=== PATIENT | male | born 1955 | race Caucasian/White ===

== ENCOUNTER 2018-06-02 13:38 | Emergency (ER) | payer MEDICARE, SELFPAY ==
[2018-06-02 13:39] VITALS: BP 158/103; PULSE 87; RESP 18; TEMP 37.2; O2SAT 98; BMI 18.6
--- NOTE | 2018-06-02 14:32 | RAD_ITS ---
STUDY: X-RAY - RIGHT HAND REASON FOR EXAM: Male, 63 years old. Pain and swelling TECHNIQUE: 3 view(s) of the hand. COMPARISON: None. FINDINGS: No demonstrated acute fracture. There is however diffuse soft tissue swelling involving the entire phalanges of the index finger. Findings suggest an inflammatory process such as cellulitis. Mild degenerative arthrosis noted in the visualized joint spaces, most pronounced at the first metacarpophalangeal joint, and the PIP and DIP joints. There is contour abnormality in the proximal fifth phalanx suggesting an old healed fracture. RAD/Hand Min 3 Views IMPRESSION: Diffuse soft tissue swelling involving the phalanges of the index finger but no demonstrated fracture. Degenerative arthrosis Old healed fracture in the proximal fifth phalanx Electronically Signed: Mikel Orta MD at 15:02 EDT , Service support ,
[2018-06-02] MEDS: Cefazolin 1 GM/50 ML BAG IV (14:56)
[2018-06-02 15:01] LABS: Absolute Lymphocyte Count 1.26 X10^3/ul (0.83-4.51); Absolute Neutrophil Count 9.1 X10^3/uL (2.0-7.7); Basophil# 0.02 X10^3/uL; Basophil% 0.2 % (0-1); Eosinophil# 0.07 X10^3/uL; Eosinophils% 0.6 % (0-5); Hematocrit 44.3 % (40-54); Hemoglobin 14.5 g/dl (13.0-16.5); Lymphocyte # 1.26 X10^3/ul (4.0); Lymphocyte % 10.9 % (19-41); Mean Corp Hgb Conc 32.7 g/gl (32-36); Mean Corpuscular Hgb 30.1 pg (27.0-32.0); Mean Corpuscular Volume 91.9 fL (80-94); Mean Platelet Vol. 9.5 fl (6.2-12.0); Monocyte# 1.08 X10^3/uL; Monocyte% 9.3 % (0-10); Neutrophil # 9.11 X10^3/uL (2.7-7.7); Neutrophil % 78.8 % (47-70); POSITIVE COUNT NO; POSITIVE DIFFERENTIAL NO; POSITIVE MORPHOLOGY NO; Platelet Count 218 K/mm3 (150-450); RBC Distribution Width CV 13.6 % (11.6-14.6); RBC Distribution Width SD 45.7 fl (35.1-43.9); Red Blood Count 4.82 M/mm3 (4.6-6.2); White Blood Count 11.6 K/mm3 (4.4-11.0)
[2018-06-02 15:08] LABS: Anion Gap 5 (5-15); BUN 10 mg/dL (7-18); BUN/Creat Ratio 9.3 RATIO (10-20); Calcium,Total 9.2 mg/dL (8.5-10.1); Chloride 106 mmol/L (98-107); Creatinine, Serum 1.07 mg/dL (0.70-1.30); EST Glomerular Filtration Rate 74 mL/min (>60); Est Glom Filt Rate - Afr Amer 89 mL/min (>60); Estimated Creatinine Clearance 57.41 ml/min; Glucose 93 mg/dL (74-106); Potassium 3.9 mmol/L (3.5-5.1); Sodium Level 141 mmol/L (136-145)
--- NOTE | 2018-06-02 15:11 | ED.VISSUMM ---
- ER Visit Summary Date of Service: 06/02/18 Chief Complaint: Redness and swelling of right index finger History of Present Illness: The patient is a 63 M who presents with redness and swelling of his right index finger. He initially injured it by closing it in a car door on May 16. About 3 days ago he noticed redness and swelling which has been increasing since that time. He states he generally did not feel well last night had some generalized malaise but denies fevers nausea vomiting. He has no known medical history, is not a diabetic. He is uncertain of his last tetanus immunization. Pain is worse when he tries to straighten the finger. Physical Examination: Blood pressure 158/103 vitals otherwise normal Moist mucous membranes Heart regular rate and rhythm Lungs are clear Abdomen soft Patient has 4 out of 4 kanavels signs is fusiform swelling of the right index finger and the finger is held in flexion he has tenderness along the flexor tendons and he has pain with passive extension he does have some erythema extending onto the hand across the second MCP joint Test Results: X-ray on my review shows soft tissue swelling but no bony erosion or acute bony abnormality. CBC shows white blood cell count of 11.6. Emergency Department Course and Treatment: Dr. Mccollum, our plastic surgeon is unavailable. I did speak to orthopedics on-call, Dr. Kaplan who advised transfer for hand surgeon. Since tetanus immunization was updated. Patient was given IV Ancef. Patient was ultimately discussed with Dr. Brown at [facility] who accepted the patient for transfer for further management. Treatment Plan: [] Disposition: Transfer [facility] Impression: Flexor tenosynovitis This note was generated with [employer] dictation software. It may contain incorrect words, spelling, and punctuation that were not noted in review of the chart prior to signing ED Disposition - Plan for ED Patient: Disposition: [facility] Chief Complaint: Cellulitis Referrals: Francis Buenrostro MD [Primary Care Provider] -
--- NOTE | 2018-06-02 15:15 | ED.DCSUM_ITS ---
- ER Visit Summary Date of Service: 06/02/18 Chief Complaint: Redness and swelling of right index finger History of Present Illness: The patient is a 63 M who presents with redness and swelling of his right index finger. He initially injured it by closing it in a car door on May 16. About 3 days ago he noticed redness and swelling which has been increasing since that time. He states he generally did not feel well last night had some generalized malaise but denies fevers nausea vomiting. He has no known medical history, is not a diabetic. He is uncertain of his last tetanus immunization. Pain is worse when he tries to straighten the finger. Physical Examination: Blood pressure 158/103 vitals otherwise normal Moist mucous membranes Heart regular rate and rhythm Lungs are clear Abdomen soft Patient has 4 out of 4 kanavels signs is fusiform swelling of the right index finger and the finger is held in flexion he has tenderness along the flexor tendons and he has pain with passive extension he does have some erythema extending onto the hand across the second MCP joint Test Results: X-ray on my review shows soft tissue swelling but no bony erosion or acute bony abnormality. CBC shows white blood cell count of 11.6. Emergency Department Course and Treatment: Dr. Mccollum, our plastic surgeon is unavailable. I did speak to orthopedics on-call, Dr. Kaplan who advised transfer for hand surgeon. Since tetanus immunization was updated. Patient was given IV Ancef. Patient was ultimately discussed with Dr. Brown at [facility] who accepted the patient for transfer for further management. Treatment Plan: [] Disposition: Transfer [facility] Impression: Flexor tenosynovitis This note was generated with [employer] dictation software. It may contain incorrect words, spelling, and punctuation that were not noted in review of the chart prior to signing ED Disposition - Plan for ED Patient: Disposition: [facility] Chief Complaint: Cellulitis Referrals: Francis Buenrostro MD [Primary Care Provider] -
--- NOTE | 2018-06-02 15:27 | NURSING ---
CALLED [facility] FOR TRANSFER.
--- NOTE | 2018-06-02 15:56 | NURSING ---
CALLING [facility]
--- NOTE | 2018-06-02 16:05 | NURSING ---
GOING TO [facility] VIA [facility]IVATE CARE. THROUGH ER.
[2018-06-02] MEDS: Diphth,Pertuss(Acell),Tet Vac 0.5 ML Vial IM (16:35)
[2018-06-02 16:55] VITALS: BP 158/100; PULSE 83; RESP 16; TEMP 36.8; O2SAT 96
--- NOTE | 2018-06-02 17:15 | ED.RN ---
PT D/C WITH EX WHO WILL BE DRIVING HIM TO [facility]. CHART GIVEN TO PT.
== END 2018-06-02 17:15 | disposition short-term general hospital (02) ==
LOC: ED 15:04
PROVIDERS: Emergency Provider Emergency Medicine; PCP Internal Medicine
DX: M65.88 Other synovitis and tenosynovitis, other site (principal); Z72.0 Tobacco use
CPT/HCPCS: 73130; 80048; 85025; 90715; 96365; 99284; A4216

== ENCOUNTER 2018-08-05 03:09 | Inpatient (IN) | payer MEDICARE, SELFPAY ==
[2018-08-05] VITALS (10 sets, daily range): BP systolic 126–160; BP diastolic 87–101; PULSE 82–99; RESP 14–20; TEMP 36.9–37.2; O2SAT 92–99; BMI 19.4; BMI 18.1
--- NOTE | 2018-08-05 04:00 | RAD_ITS ---
STUDY: X-RAY - RIGHT ELBOW REASON FOR EXAM: Male, 63 years old. Right sided elbow swelling and redness. TECHNIQUE: 3 view(s) of the elbow. COMPARISON: None. FINDINGS: The distal humerus and proximal ulna have a normal appearance. There is a lucency in the radial head that may be the result of previous fracture. A small bone fragment is visible anterior to the humeral ulnar articulation possibly related to previous trauma. This could be an intra-articular loose body. There is mild degenerative arthrosis of the radiocapitellar and ulnotrochlear articulations. There is diffuse soft tissue swelling of the elbow. There is no demonstrated fracture. RAD/Elbow min 3 Views IMPRESSION: Severe diffuse soft tissue swelling apparently related to infection. Electronically Signed: Kira Fan MD at 4:26 EDT , Service support ,
[2018-08-05 04:39] LABS: Absolute Neutrophil Count 8.6 X10^3/uL (2.0-7.7); Basophil# 0.03 X10^3/uL; Basophil% 0.3 % (0-1); Eosinophil# 0.11 X10^3/uL; Hematocrit 39.7 % (40-54); Hemoglobin 13.1 g/dl (13.0-16.5); Lymphocyte % 11.6 % (19-41); Mean Corpuscular Volume 93.9 fL (80-94); Mean Platelet Vol. 9.8 fl (6.2-12.0); Monocyte# 1.07 X10^3/uL; Monocyte% 9.6 % (0-10); Neutrophil # 8.63 X10^3/uL (2.7-7.7); Platelet Count 226 K/mm3 (150-450); RBC Distribution Width CV 13.5 % (11.6-14.6); RBC Distribution Width SD 44.8 fl (35.1-43.9); Red Blood Count 4.23 M/mm3 (4.6-6.2); White Blood Count 11.2 K/mm3 (4.4-11.0)
[2018-08-05 04:42] LABS: Anion Gap 9 (5-15); BUN 15 mg/dL (7-18); BUN/Creat Ratio 14.4 RATIO (10-20); Calcium,Total 8.9 mg/dL (8.5-10.1); Chloride 106 mmol/L (98-107); Creatinine, Serum 1.04 mg/dL (0.70-1.30); EST Glomerular Filtration Rate 76 mL/min (>60); Est Glom Filt Rate - Afr Amer 92 mL/min (>60); Glucose 89 mg/dL (74-106); Potassium 3.6 mmol/L (3.5-5.1); Sodium Level 143 mmol/L (136-145)
[2018-08-05 04:43] LABS: POSITIVE COUNT NO; POSITIVE DIFFERENTIAL NO; POSITIVE MORPHOLOGY NO
[2018-08-05] MEDS: Cefazolin 1 GM/50 ML BAG IV ×3 (04:44→22:21)
--- NOTE | 2018-08-05 04:56 | ED.VISSUMM ---
- ER Visit Summary Date of Service: 08/05/18 Chief Complaint: Right forearm and elbow pain and swelling History of Present Illness: The patient is a 63 M who presents with right arm pain and swelling. He denies any medical history daily medications. Earlier this year I saw him in the emergency department for pain and swelling of his finger. He was diagnosed with flexor tenosynovitis and transferred to [facility] and ultimately had a finger amputation. He states he believes he was diagnosed with strep at that time. He was treated with Keflex as an outpatient. In the last 24-36 hours he developed redness pain and swelling beginning at his elbow and spreading along his forearm. He states he does often bumped his elbow but does not recall any other specific injury. He reports chills. No documented fevers. No nausea vomiting or diarrhea. He does complain of some generalized myalgias. Physical Examination: Afebrile hypertensive but vitals otherwise unremarkable Moist mucous membranes Heart regular rate and rhythm Lungs are clear Patient does have signs of olecranon bursitis he has an abrasion over the elbow with soft tissue swelling and erythema over the olecranon and signs of cellulitis along the forearm he does not have any crepitus he has tenderness over the back of the elbow he has good short arc range of motion of the elbow with no pain he has an easily palpable radial pulse brisk capillary refill and normal sensation light touch Test Results: Labs notable for white blood cell count 11.2 otherwise normal. Elbow x-ray shows severe diffuse soft tissue swelling no soft tissue gas. Emergency Department Course and Treatment: Patient was treated with IV Ancef. He was discussed with the hospitalist and will be admitted under the medical service with orthopedic consultation. Treatment Plan: [] Disposition: Admit Impression: Olecranon bursitis Right arm cellulitis This note was generated with [id number] dictation software. It may contain incorrect words, spelling, and punctuation that were not noted in review of the chart prior to signing ED Disposition - Plan for ED Patient: Chief Complaint: Cellulitis Referrals: Care Physician,No Primary [Primary Care Provider] -
--- NOTE | 2018-08-05 04:59 | ED.DCSUM_ITS ---
- ER Visit Summary Date of Service: 08/05/18 Chief Complaint: Right forearm and elbow pain and swelling History of Present Illness: The patient is a 63 M who presents with right arm pain and swelling. He denies any medical history daily medications. Earlier this year I saw him in the emergency department for pain and swelling of his finger. He was diagnosed with flexor tenosynovitis and transferred to [facility] and ultimately had a finger amputation. He states he believes he was diagnosed with strep at that time. He was treated with Keflex as an outpatient. In the last 24-36 hours he developed redness pain and swelling beginning at his elbow and spreading along his forearm. He states he does often bumped his elbow but does not recall any other specific injury. He reports chills. No documented fevers. No nausea vomiting or diarrhea. He does complain of some generalized myalgias. Physical Examination: Afebrile hypertensive but vitals otherwise unremarkable Moist mucous membranes Heart regular rate and rhythm Lungs are clear Patient does have signs of olecranon bursitis he has an abrasion over the elbow with soft tissue swelling and erythema over the olecranon and signs of cellulitis along the forearm he does not have any crepitus he has tenderness over the back of the elbow he has good short arc range of motion of the elbow with no pain he has an easily palpable radial pulse brisk capillary refill and normal sensation light touch Test Results: Labs notable for white blood cell count 11.2 otherwise normal. Elbow x-ray shows severe diffuse soft tissue swelling no soft tissue gas. Emergency Department Course and Treatment: Patient was treated with IV Ancef. He was discussed with the hospitalist and will be admitted under the medical service with orthopedic consultation. Treatment Plan: [] Disposition: Admit Impression: Olecranon bursitis Right arm cellulitis This note was generated with [employer] dictation software. It may contain incorrect words, spelling, and punctuation that were not noted in review of the chart prior to signing ED Disposition - Plan for ED Patient: Chief Complaint: Cellulitis Referrals: Care Physician,No Primary [Primary Care Provider] -
--- NOTE | 2018-08-05 05:09 | PCM.HP.STD ---
Problem List (1) Olecranon bursitis, right elbow Status: Acute (2) Tobacco use Status: Chronic History of Present Illness Date of Admission: 08/05/18 Chief Complaint: RUE elbow pain, redness, swelling. The patient is a 63 y/o M w/ PMHx: Tobacco use, recent evaluation for R 2nd digit tenosynovitis with eventual amputation who now presents to the [facility] on 08/05/18 with history of onset right elbow mild swelling and redness starting approximately 24 hours prior, progressively worsening with increased warmth, extension of the erythema as well as worsened swelling and discomfort with onset subjective fevers and chills. Given patient recent amputation secondary to infection he was very anxious and presented to the ED for evaluation. In the ED workup included T 98.8, heart rate 99, BP 160/101, respiratory rate 18, 99% on room air, CBC with WBC 11.2, hemoglobin 13.1, platelet 226 with left shift, unremarkable BMP, pain film with severe diffuse soft tissue swelling. The ED patient administered IV Ancef therapy. Past Medical History Past Medical History (Chronic Problems): Chronic Problems Tobacco use (Chronic) Allergies Penicillins Allergy (Verified 08/05/18 03:14) Unknown peanut Adverse Reaction (Verified 08/05/18 03:14) Diarrhea Home Medications: Ambulatory Orders Medication Instructions Recorded NK 06/02/18 Surgical History: - - Bilateral inguinal hernia repair, recent right second finger amputation. Psychiatric History: No pertinent psych hx Lives: Alone Smoking Status: Current every day smoker - 1 cigarette tobacco pack per day. Tobacco Use: Cigarettes Alcohol: Occasional Drugs: None - *Family History Maternal History Items: - - Patient notes his mother of an MVA in her 80s with no market medical history otherwise. Paternal History Items: Dementia - Patient notes father with a history of Alzheimer's dementia. Sibling History Items: Dementia - Patient notes sister with a history of Alzheimer's dementia. Review of Systems Constitutional: Reports: Chills, Fever, Malaise, Weakness, Fatigue. Denies: Weight Change HEENT: Denies: Head Aches, Sinus Congestion, Sinus Drainage Cardiovascular: Denies: Chest Pain, Palpitations Respiratory: Denies: Cough, Shortness of breath at rest, Sputum production Gastrointestinal: Denies: Abdominal Pain, Nausea, Vomiting Genitourinary: Denies: Dysuria Musculoskeletal: Reports: Arm Pain, Back Pain. Denies: Joint Pain, Joint Tenderness Skin: Reports: Skin Changes. Denies: Rash, Wounds Neurological: Denies: Numbness, Tingling, Focal weakness Psychiatric: Denies: Anxiety, Depression, Homicidal Ideations, Suicidal Ideations Hematologic/ Lymphatic: Denies: Easy Bruising, Easy Bleeding VTE Information - Inpt Only VTE Present on Admission: No VTE Mechan Device Prophylaxis: SCD's VTE Pharm Prophylaxis ordered?: Yes Patient Problems: Active and Suspected Problems Olecranon bursitis, right elbow (Acute) Subjective: Patient seated upright in the ED bed, no acute distress, notes ongoing discomfort to the right upper extremity. Objective: Physical Examination: General: awake, alert, oriented x 3 and cooperative, seated upright in the ED bed in no apparent distress. Skin: normal color, turgor, no icterus, cyanosis except right upper extremity with right elbow and mid forearm to mid bicep region erythema, tenderness to palpation, increased warmth, edema and mild fluctuant olecranon bursa. HEENT: AT/NC, EOMI, PERRLA, MMM, no carotid bruits or JVD noted. Lungs: CTA bilaterally, moderate effort, mild decrease BL bases, no rales, ronchi or wheezing. Heart: Regular rate and rhythm; no gallop, rub audible. Abdomen: soft, NTTP, ND, normal BS, no HSM. Extremities: no cyanosis, clubbing, see skin. Neurological: patient awake, alert, oriented x 3; cognitive function intact; pupils equally reactive to light and accomodation; cranial nerves II-XII grossly normal, moving all 4 extremities although right upper extremity is mildly limited secondary to acute presentation, no focal deficits, strength moderately globally decreased secondary to acute presentation. Psychiatric: affect appears normal, no acute evidence of depressive or anxiety feelings. - Physical Exam Vital Signs Temp Pulse Resp BP Pulse Ox 98.8 F 99 18 160/101 H 99 08/05/18 03:10 08/05/18 03:10 08/05/18 03:10 08/05/18 03:10 08/05/18 03:10 Oxygen Delivery Method Room Air Weight: 135 lb 5.821 oz Body Mass Index (BMI) 19.4 Laboratory Tests Past 24 Hrs 08/05/18 08/05/18 03:15 03:15 WBC 11.2 H RBC 4.23 L Hgb 13.1 Hct 39.7 L MCV 93.9 MCH 31.0 MCHC 33.0 RDW 13.5 RDW Differential 44.8 H Plt Count 226 MPV 9.8 Immature Gran % (Auto) 0.500 Neut % (Auto) 77.0 H Lymph % (Auto) 11.6 L [place] % (Auto) 9.6 Eos % (Auto) 1.0 Baso % (Auto) 0.3 Absolute Neuts (auto) 8.6 H Absolute Lymphs (auto) 1.30 Total Counted Not Reportable Sodium 143 Potassium 3.6 Chloride 106 Carbon Dioxide 28.0 Anion Gap 9 BUN 15 Creatinine 1.04 Estim Creat Clear Calc 61.50 Est GFR (MDRD) Af Amer 92 Est GFR (MDRD) Non-Af 76 BUN/Creatinine Ratio 14.4 Glucose 89 Calcium 8.9 Assessment/Plan All Active Problems Olecranon bursitis, right elbow (Acute) The patient is a 63 y/o M w/ PMHx: Tobacco use, recent evaluation for R 2nd digit tenosynovitis with eventual amputation who now presents to the [facility] on 08/05/18 with history of onset right elbow mild swelling and redness starting approximately 24 hours prior, progressively worsening with increased warmth, extension of the erythema as well as worsened swelling and discomfort with onset subjective fevers and chills. (1) RUE Olecranon bursitis and Cellulitis: Admission CBC w/ WBC 11.2 with L shift. Will admit to [facility], maintain on IV ancef and defer vanc addition as low risk for MRSA, plan repeat CBC in AM, continue affected extremity elevation above heart when seated and in bed, monitor erythema outline with VS checks. Will consult Orthopedic surgery, Dr. Bob Fan. (2) Elevated BP without diagnosis HTN: ED BP 160/101, no prior history, possibly secondary to his acute presentation with pain, continue to monitor and add treatment if appropriate. (3) Tobacco Abuse: Encouraged cessation, inpatient consultation per RT, NR if desired. (4) DVT Prophylaxis: SCDs, lovenox. Code Visit Inpatient E&M: [id number] Init Hosp L3
[2018-08-05] MEDS: 0.9% Normal Saline 1,000 ML 125 ML IV (06:01)
--- NOTE | 2018-08-05 06:11 | NUR.TO.PHY ---
Pt elated, restless, impulsive, talkative. See shift neuro assessment Admits to marijuana, cocaine and meth use prior to coming to hospital.
--- NOTE | 2018-08-05 08:02 | PCM.CONS.GEN ---
Reason for Consult Date of Consultation: 08/05/18 History of Present Illness: The patient is a 63 year old male with a history of previous infection involving his right index finger that required an amputation about 2 months ago in [place]. Over the past several days he developed right elbow swelling and pain. He denies any significant injury or trauma. He denies using IV drugs. Due to pain and swelling he came into the emergency room. Orthopedics was not notified. Patient was admitted to the hospitalist service. Orthopedics was ultimately consulted at 7:04 AM. Patient denies fevers or chills at home. He denies any other known infections. He does admit to tobacco use, alcohol use, marijuana use. Denies significant neck or shoulder pain. Denies wrist or hand pain numbness or tingling [] Past Medical History Past Medical History (Chronic Problems): Chronic Problems Tobacco use (Chronic) Allergies Penicillins Allergy (Verified 08/05/18 03:14) Unknown peanut Adverse Reaction (Verified 08/05/18 03:14) Diarrhea Home Medications: Ambulatory Orders Medication Instructions Recorded NK 06/02/18 Surgical History: - - Bilateral inguinal hernia repair, recent right second finger amputation. Psychiatric History: No pertinent psych hx Lives: Alone Smoking Status: Current every day smoker Tobacco Use: Cigarettes Alcohol: Occasional Drugs: None - *Family History Maternal History Items: - - Patient notes his mother of an MVA in her 80s with no market medical history otherwise. Paternal History Items: Dementia - Patient notes father with a history of Alzheimer's dementia. Sibling History Items: Dementia - Patient notes sister with a history of Alzheimer's dementia. Patient Problems: Active and Suspected Problems Olecranon bursitis, right elbow (Acute) Objective: Right elbow has diffuse swelling posteriorly. Minimal fluctuance noted at the olecranon bursa. Thickening of the tissue noted more medially than laterally. Full elbow motion. Normal elbow strength. No pain at the shoulder wrist or fingers. Amputation site at index finger noted. No signs of infection there. No pain or swelling about the hand. Elbow is ligamentously stable. No obvious elbow joint effusion noted. Pronation supination of the elbow X-rays reviewed of the right elbow showing slight soft tissue calcifications anteriorly. Mild diffuse soft tissue swelling. No obvious acute fractures or dislocations. Laboratory work reviewed. Note from hospitalist reviewed - Physical Exam Vital Signs Temp Pulse Resp BP Pulse Ox 99 F 88 20 H 147/87 H 98 08/05/18 05:46 08/05/18 05:46 08/05/18 05:46 08/05/18 05:46 08/05/18 05:46 Oxygen Delivery Method Room Air Weight: 57.3 kg Body Mass Index (BMI) 18.1 Laboratory Tests Past 24 Hrs 08/05/18 08/05/18 08/05/18 03:15 03:15 07:20 WBC 11.2 H RBC 4.23 L Hgb 13.1 Hct 39.7 L MCV 93.9 MCH 31.0 MCHC 33.0 RDW 13.5 RDW Differential 44.8 H Plt Count 226 MPV 9.8 Immature Gran % (Auto) 0.500 Neut % (Auto) 77.0 H Lymph % (Auto) 11.6 L [place] % (Auto) 9.6 Eos % (Auto) 1.0 Baso % (Auto) 0.3 Absolute Neuts (auto) 8.6 H Absolute Lymphs (auto) 1.30 Total Counted Not Reportable Sodium 143 Potassium 3.6 Chloride 106 Carbon Dioxide 28.0 Anion Gap 9 BUN 15 Creatinine 1.04 Estim Creat Clear Calc 61.50 Est GFR (MDRD) Af Amer 92 Est GFR (MDRD) Non-Af 76 BUN/Creatinine Ratio 14.4 Glucose 89 Calcium 8.9 Urine Opiates Screen Pending Urine Methadone Screen Pending Ur Barbiturates Screen Pending Ur Phencyclidine Scrn Pending Ur Amphetamines Screen Pending U Methamphetamin-MDMA Pending U Benzodiazepines Scrn Pending Urine Cocaine Screen Pending U Cannabinoids Screen Pending Ur Drug Screen Comment Assessment/Plan All Active Problems Olecranon bursitis, right elbow (Acute) Right elbow cellulitis, probable olecranon bursitis: Patient was explained his diagnosis and treatment options. He did give consent for aspiration of the elbow with an 18-gauge needle. He understood the risk involved possible pain bleeding damage to nerves arteries tendons possible need for further intervention such as surgery or repeat aspirations. I explained hopefully the aspirate will help know what bacteria may be causing his problem and also may help with getting infected fluid out of the bursa. Procedure: After obtaining appropriate consent patient's right elbow was prepped with Betadine. Followed by alcohol preps. 18-gauge needle was used to aspirate his elbow olecranon bursa from a direct posterior approach over the most fluctuant area. Just 1 or 2 cc of bloody type fluid was obtained from his bursa. This was placed on a culture swab and sent for stat Gram stain culture and sensitivity. 4 x 4 ABD and Олег wrap was applied. I recommended elevation of the arm to an IV pole with a stockinette. I am recommending nonoperative treatment at this point. Hopefully with IV antibiotics elevation and supportive care this will resolve. medical/social problems including drug use alcohol use tobacco use, evaluation and treatment per hospitalist service
[2018-08-05 08:10] LABS: Amphetamine Urine VISTA POSITIVE (<1000 ng/mL); Barbiturate Urine VISTA NEGATIVE (< 200 ng/mL); Benzodiazepine Urine VISTA NEGATIVE (< 200 ng/mL); Cocaine Urine VISTA NEGATIVE (< 300 ng/mL); Ecstacy Urine VISTA NEGATIVE (< 500 ng/mL); Methadone Urine VISTA NEGATIVE (< 300 ng/mL); PCP Urine VISTA NEGATIVE (< 25 ng/mL); THC Urine VISTA POSITIVE (< 50 ng/mL); Vista UDS pH Range 7
[2018-08-05] MEDS: Enoxaparin 40 MG/0.4 ML Syringe SC (09:33)
--- NOTE | 2018-08-05 11:00 | CASEMGMT ---
Addendum entered by Misti Shahid 08/05/18 12:19: Pt's preferred pharmacy is [facility]. Per pt he doesn't currently have a PCP. PCP list provided to pt. Original Note: Social Work Assessment Referral Date: 08/05/2018 Date of Assessment: 08/05/2018 Reason for consult: Initial Assessment, Drug use Informant: LUCY Personal Status: SW met with pt to complete initial assessment. SW introduced self and role at [facility]. Pt is alert and orientated x3. Pt states that he lives alone in a two story home with two steps to enter the home. Pt states that he currently works at [employer] third shift. Pt states that he was previously independent with ALDs. Pt denied having any close friends or family for support. Pt denied DME. Pt states that his plan is to return home at discharge. Pt denied additional needs or concerns at this time. Substance Abuse Hx: Pt states that he has a history of alcohol use, tobacco, and Marijuana use. Pt states that he will drink once a day or about every other day. Pt states that he used to drink more. Pt denied additional drug use. Pt denied wanting substance use resources. Mental Health Hx: Pt denied Plan: Pt to return home at discharge. PT denied additional needs or concerns at this time. SW informed pt that if he thinks of anything he may need to let staff know. Pt states understanding. Misti Shahid VOCATIONAL EVALUATOR, ENERGY AUDIT ADVISOR
--- NOTE | 2018-08-05 11:04 | PCM.HOSP.N ---
Hospitalist Note Patient was seen and examined briefly today, his right arm is wrapped and it is elevated, orthopedics saw the patient today and aspirated approximately 2 cc out of his right olecranon bursa, they did not perform a PCR however. I have changed the patient's Ancef to 1 g every 8 hours, patient's tox screen was positive for methamphetamines and cannabinoids. Patient will be reevaluated tomorrow by orthopedic surgery.
[2018-08-05] MEDS: HYDROcodone Bitartrate/Apap 5/325 Tablet PO (17:46)
--- NOTE | 2018-08-05 19:43 | NURSING ---
During evening rounds pt was found to not be in room or on floor. Went in 10 minutes later to see if pt had returned to find him sitting in the chair. When asked about his whereabouts pt stated that he'd gone outside with a friend. Expressed to pt that he is not allowed to leave the floor without proper permission. Pt stated that he 'would not leave the floor again'. Informed charge nurse Renée.
[2018-08-06 02:00] VITALS: BP 149/91; PULSE 86; RESP 14; TEMP 36.9; O2SAT 97
[2018-08-06] MEDS: Cefazolin 1 GM/50 ML BAG IV ×2 (06:02→13:52)
[2018-08-06 07:15] LABS: Absolute Lymphocyte Count 1.43 X10^3/ul (0.83-4.51); Absolute Neutrophil Count 9.3 X10^3/uL (2.0-7.7); Basophil# 0.02 X10^3/uL; Basophil% 0.2 % (0-1); Eosinophil# 0.11 X10^3/uL; Eosinophils% 0.9 % (0-5); Hematocrit 39.2 % (40-54); Hemoglobin 12.5 g/dl (13.0-16.5); Lymphocyte # 1.43 X10^3/ul (4.0); Lymphocyte % 11.8 % (19-41); Mean Corp Hgb Conc 31.9 g/gl (32-36); Mean Corpuscular Hgb 29.9 pg (27.0-32.0); Mean Corpuscular Volume 93.8 fL (80-94); Mean Platelet Vol. 9.7 fl (6.2-12.0); Monocyte% 9.9 % (0-10); Neutrophil # 9.28 X10^3/uL (2.7-7.7); Neutrophil % 76.9 % (47-70); Platelet Count 210 K/mm3 (150-450); RBC Distribution Width CV 13.7 % (11.6-14.6); RBC Distribution Width SD 46.5 fl (35.1-43.9); Red Blood Count 4.18 M/mm3 (4.6-6.2); White Blood Count 12.1 K/mm3 (4.4-11.0)
[2018-08-06 07:24] LABS: POSITIVE COUNT NO; POSITIVE DIFFERENTIAL NO; POSITIVE MORPHOLOGY NO
[2018-08-06 07:41] LABS: Anion Gap 6 (5-15); BUN 13 mg/dL (7-18); BUN/Creat Ratio 13.1 RATIO (10-20); Calcium,Total 8.5 mg/dL (8.5-10.1); Chloride 106 mmol/L (98-107); EST Glomerular Filtration Rate 80 mL/min (>60); Est Glom Filt Rate - Afr Amer 97 mL/min (>60); Estimated Creatinine Clearance 59.69 ml/min; Glucose 98 mg/dL (74-106); Potassium 4.3 mmol/L (3.5-5.1); Sodium Level 141 mmol/L (136-145)
[2018-08-06 09:19] VITALS: BP 148/90; PULSE 78; RESP 20; TEMP 36.3; O2SAT 96
[2018-08-06] MEDS: 0.9% NaCl Peripheral Flush Adult/Peds IV ×2 (13:52→22:08)
[2018-08-06 14:00] VITALS: BP 144/90; PULSE 88; RESP 18; TEMP 36.6; O2SAT 97
--- NOTE | 2018-08-06 14:07 | NURSING ---
pt offerred a nicotine patch which he declined, pt offerred pain meds which he declines at this time-pt is upset, waiting for dr garcia (who said he would be here within the hour)-pt informed
--- NOTE | 2018-08-06 15:42 | PCM.PN.ORT ---
Patient Problems: Active and Suspected Problems Olecranon bursitis, right elbow (Acute) Subjective: Patient states his right elbow is feeling slightly better now. He states that actually felt worse last evening. He has noted more swelling. He is hoping to be discharged soon. Objective: Patient has diffuse swelling and hyperemia about the right elbow olecranon bursa. Questionable mild fluctuance at the elbow bursa. Some swelling in the forearm. No severe tenderness at the forearm wrist or hand. Good active motion of the wrist and fingers. Normal sensation. Good motion of the shoulder. No pain at the upper arm or shoulder region. Fullness seems to be more dorsal ulnar than radial. Skin is intact. No expressible drainage. - Physical Exam Vital Signs Temp Pulse Resp BP Pulse Ox 97.3 F L 78 20 H 148/90 H 96 08/06/18 09:19 08/06/18 09:19 08/06/18 09:19 08/06/18 09:19 08/06/18 09:19 Oxygen Delivery Method Room Air Weight: 57.3 kg Body Mass Index (BMI) 18.1 Intake and Output for Last 24 Hours 08/04/18 08/05/18 08/06/18 23:59 23:59 23:59 Intake Total 1429 / 1429 Balance 1429 / 1429 Microbiology Past 72 Hours 08/05/18 07:30 Gram Stain - Final Wound - Elbow Wound Culture - Preliminary No growth-Final to follow Laboratory Tests Past 24 Hrs 08/06/18 08/06/18 06:33 06:33 WBC 12.1 H RBC 4.18 L Hgb 12.5 L Hct 39.2 L MCV 93.8 MCH 29.9 MCHC 31.9 L RDW 13.7 RDW Differential 46.5 H Plt Count 210 MPV 9.7 Immature Gran % (Auto) 0.300 Neut % (Auto) 76.9 H Lymph % (Auto) 11.8 L [place] % (Auto) 9.9 Eos % (Auto) 0.9 Baso % (Auto) 0.2 Absolute Neuts (auto) 9.3 H Absolute Lymphs (auto) 1.43 Total Counted Not Reportable Sodium 141 Potassium 4.3 Chloride 106 Carbon Dioxide 29.0 Anion Gap 6 BUN 13 Creatinine 1.00 Estim Creat Clear Calc 59.69 Est GFR (MDRD) Af Amer 97 Est GFR (MDRD) Non-Af 80 BUN/Creatinine Ratio 13.1 Glucose 98 Calcium 8.5 Medical Necessity - Tobacco Use Smoking Status: Current every day smoker Tobacco Use: Cigarettes Assessment/Plan All Active Problems Olecranon bursitis, right elbow (Acute) Right elbow cellulitis, probable olecranon bursitis: Patient was explained his diagnosis and treatment options. He did give consent for aspiration of the elbow with an 18-gauge needle. He understood the risk involved possible pain bleeding damage to nerves arteries tendons possible need for further intervention such as surgery or repeat aspirations. I explained hopefully the aspirate will help know what bacteria may be causing his problem and also may help with getting infected fluid out of the bursa. Procedure: After obtaining appropriate consent patient's right elbow was prepped with Betadine. Followed by alcohol preps. 18-gauge needle was used to aspirate his elbow olecranon bursa from a direct posterior approach over the most fluctuant area. Just 1 or 2 cc of bloody type fluid was obtained from his bursa. Then the area was milked and another drop or 2 of blood was obtained and placed on a culture swab. This was placed on a culture swab and sent for MRSA PCR, and stat Gram stain culture and sensitivity. 4 x 4 ABD and Олег wrap was applied. I recommended elevation of the arm to an IV pole with a stockinette. I am recommending nonoperative treatment at this point. Hopefully with IV antibiotics elevation and supportive care this will resolve. This was again discussed with Dr. Gill. He stated infectious disease coverage is not available on the weekend. He felt that if he does not improve with current antibiotic treatment or if PCR test is positive for staph, he would switch his antibiotic. medical/social problems including drug use alcohol use tobacco use, evaluation and treatment per hospitalist service
--- NOTE | 2018-08-06 16:57 | PCM.PROGNOTE ---
Patient Problems: Active and Suspected Problems Olecranon bursitis, right elbow (Acute) Subjective: Was seen and examined today, patient still has significant induration and redness of his right elbow area. The elbow area is also still painful. I talked with orthopedic surgery today, they aspirated approximately 2 cc of fluid from the right olecranon bursa and it was sent down for PCR test today-this is pending at the time of my dictation. - Physical Exam General: Alert, Oriented x3, Cooperative, No apparent distress, Well developed, Well nourished HEENT: Atraumatic, PERRLA, EOMI, Normocephalic Oral: Moist Mucosa Neck: Supple, Trachea Midline, Thyroid Normal Size and Texture Lungs: Clear to auscultation, Normal air movement, No rhonchi, No wheeze, No rales Cardiovascular: Regular rate, Regular Rhythm, Normal S1, Normal S2, No murmurs, No Ectopic Activity Abdomen: Bowel Sounds Present, Soft, Non Tender, Non-Distended Extremities: Capillary Refill Less than 3 Seconds, Edema - Right elbow area is edematous over the right olecranon bursa Skin: No rashes, No breakdown, Rash Present - Redness is present over the patient's right elbow area-olecranon bursa Musculoskeletal: Tenderness - Tenderness to palpation is noted over the patient's right olecranon bursa Neurological: Cranial nerves II-XII grossly intact, Neuro grossly intact, Muscle tone normal, Sensory exam intact to light touch and pain Psych/Mental Status: Normal Affect, Appropriate, Alert and oriented to time, place, person, mood and affect Vital Signs Temp Pulse Resp BP Pulse Ox 97.9 F 88 18 144/90 H 97 08/06/18 14:00 08/06/18 14:00 08/06/18 14:00 08/06/18 14:00 08/06/18 14:00 Oxygen Delivery Method Room Air Weight: 57.3 kg Body Mass Index (BMI) 18.1 Intake and Output for Last 24 Hours 08/04/18 08/05/18 08/06/18 23:59 23:59 23:59 Intake Total 1429 / 1429 Balance 1429 / 1429 Microbiology Past 72 Hours 08/05/18 07:30 Gram Stain - Final Wound - Elbow Wound Culture - Preliminary No growth-Final to follow Laboratory Tests Past 24 Hrs 08/06/18 08/06/18 08/06/18 06:33 06:33 15:35 WBC 12.1 H RBC 4.18 L Hgb 12.5 L Hct 39.2 L MCV 93.8 MCH 29.9 MCHC 31.9 L RDW 13.7 RDW Differential 46.5 H Plt Count 210 MPV 9.7 Immature Gran % (Auto) 0.300 Neut % (Auto) 76.9 H Lymph % (Auto) 11.8 L [place] % (Auto) 9.9 Eos % (Auto) 0.9 Baso % (Auto) 0.2 Absolute Neuts (auto) 9.3 H Absolute Lymphs (auto) 1.43 Total Counted Not Reportable Sodium 141 Potassium 4.3 Chloride 106 Carbon Dioxide 29.0 Anion Gap 6 BUN 13 Creatinine 1.00 Estim Creat Clear Calc 59.69 Est GFR (MDRD) Af Amer 97 Est GFR (MDRD) Non-Af 80 BUN/Creatinine Ratio 13.1 Glucose 98 Calcium 8.5 S.aureus Protein A PCR Pending MRSA (PCR) Pending Medical Necessity - Tobacco Use Smoking Status: Current every day smoker Tobacco Use: Cigarettes Assessment/Plan All Active Problems Olecranon bursitis, right elbow (Acute) #1 right olecranon bursitis-probable bacterial in nature, continue Ancef for now, await PCR testing on fluid today, patient's Gram stain yesterday showed no organisms and no white cells. I will repeat the patient's CBC tomorrow Code Visit Inpatient E&M: 09170 Subs Hosp L2
[2018-08-06 17:10] LABS: M R Staph aureus DNA By PCR Negative (Negative); Probe Check PASS; Staph aureus DNA By PCR POSITIVE (Negative)
[2018-08-06 17:59] VITALS: BP 142/101; PULSE 90; RESP 24; TEMP 37
[2018-08-06 20:00] VITALS: BP 132/86; PULSE 96; RESP 17; TEMP 38.1; O2SAT 94
[2018-08-06 20:21] VITALS: BP 132/86; PULSE 96; RESP 17; TEMP 38.1
[2018-08-06] MEDS: Cefazolin 2 GM in 0.9% Normal Saline 100 ML IV (21:30)
[2018-08-07 01:00] VITALS: BP 154/99; PULSE 85; RESP 19; TEMP 37.6; O2SAT 98
[2018-08-07 02:00] VITALS: BP 154/88; PULSE 92; RESP 19; TEMP 37.3
[2018-08-07 05:34] LABS: Absolute Neutrophil Count 5.7 X10^3/uL (2.0-7.7); Basophil# 0.02 X10^3/uL; Basophil% 0.2 % (0-1); Eosinophil# 0.21 X10^3/uL; Eosinophils% 2.4 % (0-5); Hemoglobin 13.9 g/dl (13.0-16.5); Lymphocyte % 17.4 % (19-41); Mean Corp Hgb Conc 33.1 g/gl (32-36); Mean Corpuscular Hgb 30.6 pg (27.0-32.0); Mean Corpuscular Volume 92.5 fL (80-94); Mean Platelet Vol. 9.4 fl (6.2-12.0); Monocyte# 1.17 X10^3/uL; Monocyte% 13.6 % (0-10); Neutrophil # 5.69 X10^3/uL (2.7-7.7); Neutrophil % 65.9 % (47-70); Platelet Count 186 K/mm3 (150-450); RBC Distribution Width CV 13.6 % (11.6-14.6); Red Blood Count 4.54 M/mm3 (4.6-6.2); White Blood Count 8.6 K/mm3 (4.4-11.0)
[2018-08-07 05:43] LABS: POSITIVE COUNT NO; POSITIVE DIFFERENTIAL NO; POSITIVE MORPHOLOGY NO
[2018-08-07 05:47] VITALS: BP 146/89; PULSE 79; RESP 146; RESP 19; TEMP 37.2; O2SAT 98
[2018-08-07] MEDS: Cefazolin 2 GM in 0.9% Normal Saline 100 ML IV (05:47)
[2018-08-07] MEDS: HYDROcodone Bitartrate/Apap 5/325 Tablet PO (06:01)
--- NOTE | 2018-08-07 08:15 | DCINST_ITS ---
- Discharge Diagnoses Current Active Problems: Current Active and Chronic Problems Olecranon bursitis, right elbow (Acute) Tobacco use (Chronic) You will use the following diet at home:: No restrictions Your food should be the consistency of: Regular Your liquids should be the consistency of: Regular/Thin Discharge Activity: Return to Normal Activity Weight Bearing Status: Full weight bearing Allergies/Adverse Reactions: Allergies Penicillins Allergy (Verified 08/05/18 03:14) Unknown peanut Adverse Reaction (Verified 08/05/18 03:14) Diarrhea Medications to take at Discharge Acetaminophen [Tylenol Tablet] 650 mg PO Q6H PRN PRN tablet 08/07/18 Cephalexin [Keflex] 500 mg PO 4X/DAY #40 cap 08/07/18 Hydrocodone Bitart/Apap 5-325 [[place] 5/325] 1 - 2 tab PO Q6H PRN PRN 7 Days #20 tab 08/07/18 The following prescriptions were given: Hydrocodone Bitart/Apap 5-325 [[place] 5/325] 1 - 2 tab PO Q6H PRN PRN 7 Days #20 tab PRN Reason: Moderate-severe pain Cephalexin [Keflex] 500 mg PO 4X/DAY #40 cap Primary Care Physician: Care Physician,No Primary [Primary Care Provider] - Test Results: Test results from this visit will be discussed in further detail at your follow- up appointment, if applicable. Please Follow Up With: Bob Fan MD When: IN ONE WEEK-CALL FOR APPOINTMENT- [phone]
[2018-08-07 10:00] VITALS: BP 135/76; PULSE 81; RESP 18; TEMP 36.4
[2018-08-07 10:24] VITALS: BP 135/76; PULSE 81; RESP 18; TEMP 36.4; O2SAT 100
--- NOTE | 2018-08-07 17:14 | PCM.DC.SUM ---
Discharge Date and Diagnosis Date of Admission: 08/05/18 Date of Discharge: 08/07/18 - Primary Discharge Diagnosis #1 right olecranon bursitis-secondary to methicillin sensitive staph aureus #2 amphetamine abuse - Secondary Discharge Diagnosis Chronic Problems Tobacco use (Chronic) Hospital Course and Treatment Operations: None Procedures: - - Aspiration of right olecranon bursa x2 Summary of Care Provided: The patient is a 63 year old M was seen in the emergency room with a chief complaint of right elbow pain and swelling along with redness. Test results are notable for an elevated white blood cell count of 11.2, x-ray of the right elbow shows diffuse soft tissue swelling with no soft tissue gas. Patient was given IV Ancef in the emergency room, he was admitted to [place] [address], he was seen in consultation by orthopedic surgery who performed a tap on his right olecranon bursa, repeat labs showed a lowering of his white blood cell count, a second tap was performed for a PCR and this was positive for staph which was not MRSA. On 08/07/18, patient was seen and examined in his right elbow area appeared to be less edematous and tender and it was felt he was stable for discharge. Physical exam: On examination he appeared in good health and spirits. Vital signs as documented. Skin warm and dry and without overt rashes. Neck without JVD. Lungs clear. Heart exam notable for regular rhythm, normal sounds and absence of murmurs, rubs or gallops. Abdomen unremarkable and without evidence of organomegaly, masses, or abdominal aortic enlargement. Extremities: Right elbow is tender to palpation, it is mildly swollen and reddened. No lower extremity edema was noted. Neuro: Cranial nerves II through XII are grossly intact, no focal motor deficits were noted. Psych: Patient is alert and oriented x3, he does not appear agitated or depressed Patient was discharged home in stable condition on 08/07/18, additional note, patient's tox screen was positive for amphetamines which the patient states he takes occasionally. Discharge Activity: Return to Normal Activity Weight Bearing Status: Full weight bearing Home Medications: Medications to take at Discharge Acetaminophen [Tylenol Tablet] 650 mg PO Q6H PRN PRN tablet 08/07/18 Cephalexin [Keflex] 500 mg PO 4X/DAY #40 cap 08/07/18 Hydrocodone Bitart/Apap 5-325 [[place] 5/325] 1 - 2 tab PO Q6H PRN PRN 7 Days #20 tab 08/07/18 Following Prescrptions Were Given to Patient: Hydrocodone Bitart/Apap 5-325 [[place] 5/325] 1 - 2 tab PO Q6H PRN PRN 7 Days #20 tab PRN Reason: Moderate-severe pain Cephalexin [Keflex] 500 mg PO 4X/DAY #40 cap Primary Care Physician: Care Physician,No Primary [Primary Care Provider] - Please Follow Up With: Bob Fan MD When: IN ONE WEEK-CALL FOR APPOINTMENT- [phone] Disposition: Home Minutes spent on discharge:: 32 Patient Condition:: Stable Medical Necessity - Tobacco Use Smoking Status: Current every day smoker Tobacco Use: Cigarettes Meaningful Use Info Meaningful Use Diagnoses (Choose all that apply): None applicable Code Visit Inpatient E&M: 94861 Disch Hosp
--- NOTE | 2018-08-07 17:18 | DS.PCM_ITS ---
Discharge Date and Diagnosis Date of Admission: 08/05/18 Date of Discharge: 08/07/18 - Primary Discharge Diagnosis #1 right olecranon bursitis-secondary to methicillin sensitive staph aureus #2 amphetamine abuse - Secondary Discharge Diagnosis Chronic Problems Tobacco use (Chronic) Hospital Course and Treatment Operations: None Procedures: - - Aspiration of right olecranon bursa x2 Summary of Care Provided: The patient is a 63 year old M was seen in the emergency room with a chief complaint of right elbow pain and swelling along with redness. Test results are notable for an elevated white blood cell count of 11.2, x-ray of the right elbow shows diffuse soft tissue swelling with no soft tissue gas. Patient was given IV Ancef in the emergency room, he was admitted to [place] [address], he was seen in consultation by orthopedic surgery who performed a tap on his right olecranon bursa, repeat labs showed a lowering of his white blood cell count, a second tap was performed for a PCR and this was positive for staph which was not MRSA. On 08/07/18, patient was seen and examined in his right elbow area appeared to be less edematous and tender and it was felt he was stable for discharge. Physical exam: On examination he appeared in good health and spirits. Vital signs as documented. Skin warm and dry and without overt rashes. Neck without JVD. Lungs clear. Heart exam notable for regular rhythm, normal sounds and absence of murmurs, rubs or gallops. Abdomen unremarkable and without evidence of organomegaly, masses, or abdominal aortic enlargement. Extremities: Right elbow is tender to palpation, it is mildly swollen and reddened. No lower extremity edema was noted. Neuro: Cranial nerves II through XII are grossly intact, no focal motor deficits were noted. Psych: Patient is alert and oriented x3, he does not appear agitated or depressed Patient was discharged home in stable condition on 08/07/18, additional note, patient's tox screen was positive for amphetamines which the patient states he takes occasionally. Discharge Activity: Return to Normal Activity Weight Bearing Status: Full weight bearing Home Medications: Medications to take at Discharge Acetaminophen [Tylenol Tablet] 650 mg PO Q6H PRN PRN tablet 08/07/18 Cephalexin [Keflex] 500 mg PO 4X/DAY #40 cap 08/07/18 Hydrocodone Bitart/Apap 5-325 [[place] 5/325] 1 - 2 tab PO Q6H PRN PRN 7 Days #20 tab 08/07/18 Following Prescrptions Were Given to Patient: Hydrocodone Bitart/Apap 5-325 [[place] 5/325] 1 - 2 tab PO Q6H PRN PRN 7 Days #20 tab PRN Reason: Moderate-severe pain Cephalexin [Keflex] 500 mg PO 4X/DAY #40 cap Primary Care Physician: Care Physician,No Primary [Primary Care Provider] - Please Follow Up With: Bob Fan MD When: IN ONE WEEK-CALL FOR APPOINTMENT- [phone] Disposition: Home Minutes spent on discharge:: 32 Patient Condition:: Stable Medical Necessity - Tobacco Use Smoking Status: Current every day smoker Tobacco Use: Cigarettes Meaningful Use Info Meaningful Use Diagnoses (Choose all that apply): None applicable Code Visit Inpatient E&M: 65357 Disch Hosp
== END 2018-08-07 10:46 | disposition home or self-care (01) | DRG 558 ==
LOC: ED 03:35 → MS3 05:14
PROVIDERS: Orthopaedic Surgery; Admitting Provider Family Medicine; Emergency Provider Emergency Medicine; Visit Provider Internal Medicine
DX: M70.21 Olecranon bursitis, right elbow (principal); L03.113 Cellulitis of right upper limb; B95.61 Methicillin susceptible Staphylococcus aureus infection as the cause of diseases classified elsewhere; Z89.021 Acquired absence of right finger(s); F15.10 Other stimulant abuse, uncomplicated; F17.210 Nicotine dependence, cigarettes, uncomplicated; F12.90 Cannabis use, unspecified, uncomplicated; Z23 Encounter for immunization
CPT/HCPCS: 36415; 73080; 80048; 80307; 85025; 87070; 87075; 87077; 87186; 87205; 87640; 97802; 99283; 99406; J7030; J7050; 90686; A4216

== ENCOUNTER 2019-06-04 00:18 | Emergency (ER) | payer MEDICARE, SELFPAY ==
[2019-06-04 00:18] VITALS: BP 152/103; PULSE 90; RESP 24; TEMP 36.2; O2SAT 93; BMI 20.5
[2019-06-04 00:34] VITALS: BP 152/98; PULSE 87
--- NOTE | 2019-06-04 00:34 | CT_ITS ---
We are attempting to reach an attending provider to discuss findings. An addendum with communication details will be sent when the communication is complete. HISTORY: INJURY UNKNOWN, SEVERAL FACIAL TRAUMA TECHNIQUE: Multiple axial images were obtained of the brain without intravenous contrast. A radiation dose optimization technique was used for this scan. COMPARISON: None FINDINGS: # of images incl. paperwork: 206 Facial contusions are present bilaterally. Left frontal sinus fracture. Left frontal bone fracture. Multiple left orbital fractures. The orbital floor fractures involve the orbital roof, the lateral wall, the posterior margin, the frontal bone, and the left temporal bone. There is intracranial gas. There is parenchymal hemorrhage. There is parenchymal gas. And there must be at least some sub-or arachnoid and subdural gas due to the fractures and the parenchymal disease. There is localized effacement of sulci and swelling. The subdural gas is slightly displaced the left frontal lobe. There is likely some subdural hemorrhage extending along the falx with a tiny focus of gas. There is minimal bowing of the falx from left to right but without more than 1-2 mm of shift. This is above the lateral ventricles. At the lateral ventricles there is no midline shift. There is perhaps minimal compression of the anterior horn of the left lateral ventricle. CT/Brain/Head without Contrast IMPRESSION: Multiple fractures about the left orbit and involving the left paranasal sinuses the left frontal sinus the left temporal bone the left frontal bone. Parenchymal hemorrhage due to penetrating injury in slight depression of the skull fracture. Subdural gas and slightly displacing the left frontal lobe. Small amount of subdural gas extending along the falx with some subdural hematoma. Above the level of the lateral ventricles there is some minimal bowing to the falx likely related to perhaps 1-2 mm of [id number] shift. At the level lateral ventricles I do not perceive any midline shift. Individualized dose optimization techniques were used for this CT. at 0136 Reported and signed by: Braulio James MD Electronically Signed: Braulio James MD at 1:35 EDT Tel , Service support ,
--- NOTE | 2019-06-04 00:34 | CT_ITS ---
HISTORY: INJURY , FACIAL TRAUMA EXAMINATION: CT Spine Cervical W/O Contrast TECHNIQUE: Helically acquired images were obtained of the cervical spine. 2D reformatted images were reviewed. A radiation dose optimization technique was used for this scan. IV Contrast dosage and agent: None. COMPARISON: None FINDINGS: Cervical levoscoliosis which may be positional, idiopathic, or related to paravertebral muscle spasm. Cervical vertebra are normal in height. No fracture or acute osseous abnormality. Intact dens and craniocervical junction. Multilevel degenerative changes. Multilevel facet joint arthritis, greatest at the C3-4 level on the right. Degenerative grade 1 spondylolisthesis of C3 on C4. The posterior elements appear intact. C3-4 through C6-7 disc space narrowing accompanied by endplate spurring. Multilevel uncovertebral spurring. Bilateral carotid atherosclerotic calcifications. CT/Spine Cervical without Contras IMPRESSION: 1. No fracture or acute osseous abnormality. 2. Multilevel degenerative changes including degenerative grade 1 spondylolisthesis of C3 on C4. Individualized dose optimization techniques were used for this CT. at 0144 Reported and signed by: Horacio Chavarria MD Electronically Signed: Horacio Chavarria, at 1:43 EDT Tel , Service support ,
--- NOTE | 2019-06-04 00:35 | CT_ITS ---
HISTORY: INJURY UNKNOWN, SEVERAL FACIAL TRAUMA TECHNIQUE: Helically acquired images were obtained of the facial bones without intravenous contrast. A radiation dose optimization technique was used for this scan. COMPARISON: None FINDINGS: # of images incl. paperwork: 437 Multiple facial fractures and skull fractures are present. These are all on the left about and above the left orbit. A left nasal bone fracture is present with minimal rightward deviation of the fracture fragments. Nondisplaced fracture is present through the anterior aspect of the left lamina papyracea. The roof of the left orbit is fractured. This fracture fragment is depressed by 5 mm. The lateral wall of the orbit is fractured in several locations but more cranially and inferiorly. No orbital floor fracture is perceived. The left zygomatic arch is intact. Fracture is present through the lateral aspect of the left frontal sinus. This extends to the left frontal bone and the left orbital roof. There is some displacement and depression to the left frontal bone fracture. These are comminuted. The left frontal bone fracture is depressed anteriorly by just over 1 cortex width, 3 mm. More posteriorly the same depressed fracture fragment is depressed by less than that. There is contusion within the overlying soft tissues. Left frontal subdural gas and hemorrhage is present. Left parenchymal hemorrhage is present within the frontal lobe. The subdural gas has minimal mass effect on the left frontal lobe with effacement of sulci and displacement of sulci. A right orbital roof fracture is present extending out into the right frontal bone. This is present best demonstrated on the coronal images. This is minimally displaced on the frontal bone. Orbits appear normal. NaSal cavity fluid is present. Ethmoid air cell fluid is present. Frontal sinus fluid is present. Left sphenoid sinus fluid is present. Mastoid air cells appear to be free of disease. CT/Sinus/Facial Bone IMPRESSION: Multiple facial fractures. Bilateral superior orbital fractures. 3 mm depressed left frontal bone fracture with underlying subdural gas, underlying subdural hemorrhage, an underlying parenchymal hemorrhage and gas. Individualized dose optimization techniques were used for this CT. at 0153 Reported and signed by: Braulio James MD Electronically Signed: Braulio James MD at 1:52 EDT Tel , Service support ,
--- NOTE | 2019-06-04 00:35 | RAD_ITS ---
HISTORY: TRAUMA COMPARISON: None FINDINGS: # of images incl. paperwork: 2 XR Spine Thoracic 3 Views: 2 frontal views of the thoracic spine only. No lateral imaging. Multilevel degenerative disc disease with trace malalignment. The left paraspinous stripe is normal. Descending thoracic aortic margin demonstrates mild tortuosity. There is some wedging to the T9 vertebral body due to superior endplate fracture. Degenerative disc disease at the L1-L2 L2-L3 levels with a dextroscoliosis within the upper lumbar spine No acute thoracic spine fracture or subluxation. RAD/Thoracic Spine 3 Views IMPRESSION: No acute thoracic spine fracture or subluxation perceived, however, only 2 frontal images. No lateral projection. There is mild wedging to the T9 vertebral body of unknown acuity. This is likely chronic. A lateral image may be beneficial. Without the lateral projection the negative predictive dyed to exclude malalignment and vertebral body fracture is significantly increased. at 0200 Reported and signed by: Braulio James MD Electronically Signed: Braulio James MD at 1:59 EDT Tel , Service support ,
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
--- NOTE | 2019-06-04 00:44 | ED.RN ---
PT EX- CONTACTED PER PT REQUEST
[2019-06-04 00:45] LABS: Absolute Neutrophil Count 18.7 X10^3/uL (2.0-7.7); Basophil# 0.06 X10^3/uL; Basophil% 0.3 % (0-1); Eosinophil# 0.02 X10^3/uL; Eosinophils% 0.1 % (0-5); Hematocrit 40.9 % (40-54); Hemoglobin 13.2 g/dL (13.0-16.5); Lymphocyte % 6.4 % (19-41); Mean Corp Hgb Conc 32.3 g/dL (32-36); Mean Corpuscular Hgb 29.9 pg (27.0-32.0); Mean Corpuscular Volume 92.5 fL (80-94); Monocyte# 1.32 X10^3/uL; Monocyte% 6.1 % (0-10); NRBC Flagged by Analyzer 0 % (0-5); Neutrophil # 18.74 X10^3/uL (2.7-7.7); Platelet Count 197 K/mm3 (150-450); RBC Distribution Width CV 13.2 % (11.6-14.6); RBC Distribution Width SD 45.4 fl (35.1-43.9); Red Blood Count 4.42 M/mm3 (4.6-6.2); White Blood Count 21.8 K/mm3 (4.4-11.0)
[2019-06-04] MEDS: fentaNYL 100 MCG/2 ML Ampul 25 MCG IV (00:52)
[2019-06-04 00:54] LABS: Anion Gap 7 (5-15); BUN 25 mg/dL (7-18); BUN/Creat Ratio 19.8 RATIO (10-20); Calcium,Total 9.1 mg/dL (8.5-10.1); Chloride 104 mmol/L (98-107); Creatinine, Serum 1.26 mg/dL (0.70-1.30); EST Glomerular Filtration Rate 61 mL/min (>60); Est Glom Filt Rate - Afr Amer 74 mL/min (>60); Estimated Creatinine Clearance 51.47 ml/min; Glucose 112 mg/dL (74-106); Potassium 4.6 mmol/L (3.5-5.1); Sodium Level 137 mmol/L (136-145)
[2019-06-04 00:56] LABS: International Normalized Ratio 1.2; Prothrombin Time (Protime)PT. 14.7 SECONDS (11.7-14.9)
[2019-06-04 00:57] LABS: Partial Thromboplast Time 27.7 Seconds (24.1-36.2)
[2019-06-04 00:59] LABS: Alcohol, Blood (Medical)-Serum < 3.0 mg/dL
--- NOTE | 2019-06-04 01:25 | ED.RN ---
Just prior to pharmacy technologist taking pt from room pt thrashing in bed and c/o severe pain, pulling at c-collar. Fentanyl ordered and giiven.
[2019-06-04 01:30] VITALS: BP 157/94; PULSE 79; RESP 16; O2SAT 94
--- NOTE | 2019-06-04 01:32 | ED.RN ---
EMS UNABLE TO TRANSPORT [facility] RUNNING. [facility] STOPPED PER DR LOPEZ. EMS GOING TO TAKE [facility] WITH THEM FOR [place] TO RUN
[2019-06-04 01:42] VITALS: BP 155/98; PULSE 87; RESP 16; O2SAT 94
== END 2019-06-04 01:46 | disposition short-term general hospital (02) ==
PROVIDERS: Emergency Provider Emergency Medicine
DX: S06.6X9A Traumatic subarachnoid hemorrhage with loss of consciousness of unspecified duration, initial encounter (principal); S02.0XXA Fracture of vault of skull, initial encounter for closed fracture; G93.89 Other specified disorders of brain; S02.82XA Fracture of other specified skull and facial bones, left side, initial encounter for closed fracture; S01.81XA Laceration without foreign body of other part of head, initial encounter; S01.312A Laceration without foreign body of left ear, initial encounter; S22.070A Wedge compression fracture of T9-T10 vertebra, initial encounter for closed fracture; X58.XXXA Exposure to other specified factors, initial encounter; Y93.55 Activity, bike riding; Y92.9 Unspecified place or not applicable; F17.200 Nicotine dependence, unspecified, uncomplicated
CPT/HCPCS: 70450; 70486; 72072; 72125; 80048; 80320; 85025; 85610; 85730; 96374; 96375; 99285; J7030; G0480